=== PATIENT | female | born 1980 | race Caucasian/White ===

== ENCOUNTER 2017-01-03 12:48 | Emergency (ER) | payer OTHER ==
[2017-01-03 13:01] VITALS: BP 107/67
--- NOTE | 2017-01-03 13:30 | UC ---
Lower Extremity/Ankle HPI - HPI Summary HPI Summary: later left ankle injury twisted on an uneven side walk yesterday---pain swelling and bruising lateral left ankle - History of Current Complaint Chief Complaint: UCLowerExtremity Stated Complaint: LT ANKLE INJURY Time Seen by Provider: 01/03/17 13:11 Hx Obtained From: Patient ?: No Onset/Duration: Sudden Onset, Lasting Days - 1, Still Present Severity Initially: Moderate Severity Currently: Moderate Pain Intensity: 6 Pain Scale Used: 0-10 Numeric Aggravating Factor(s): Standing, Ambulation Alleviating Factor(s): Rest, Elevation, Ice, OTC Meds Able to Bear Weight: Yes - with pain - Allergies/Home Medications Allergies/Adverse Reactions: Allergies Allergy/AdvReac Type Severity Reaction Status Date / Time No Known Allergies Allergy Verified 11/10/13 10:03 Home Medications: Home Medications Cetirizine* [ZyrTEC 10 MG TAB*] 10 mg PO DAILY 01/03/17 [History Confirmed 01/03] Ibuprofen [Advil] 600 mg PO 01/03/17 [History] Loratadine & Pseudoephedrine [Claritin-D 24 Hour 10-240 mg] 01/03/17 [History] PMH/Surg Hx/FS Hx/Imm Hx Previously Healthy: Yes - Surgical History Surgical History: Yes Surgery Procedure, Year, and Place: BILATERAL AUGMENTATION - 1996 [facility] [place]. C- SECTION - 2011 [place]. DERMABRASION - [address] [facility] [address] - Family History Known Family History: Positive: None Family History: no cardiovascular issues in family lineage - Social History Occupation: Unemployed Lives: With Family Alcohol Use: Occasionally Substance Use Type: None Smoking Status (MU): Never Smoked Tobacco Have You Smoked in the Last Year: No Review of Systems Constitutional: Negative Skin: Negative Eyes: Negative ENT: Negative Respiratory: Negative Cardiovascular: Negative Gastrointestinal: Negative Genitourinary: Negative Motor: Negative Neurovascular: Negative Musculoskeletal: Arthralgia - left lateral ankle Neurological: Negative Psychological: Negative All Other Systems Reviewed And Are Negative: Yes Physical Exam Triage Information Reviewed: Yes Appearance: Well-Appearing, No Pain Distress, Well-Nourished Vital Signs: Initial Vital Signs Temp 98.7 F 01/03/17 12:58 Pulse 85 01/03/17 12:58 Resp 18 01/03/17 12:58 BP 107/67 01/03/17 12:58 Pulse Ox 99 01/03/17 12:58 Vital Signs Reviewed: Yes Eye Exam: Normal Eyes: Positive: Conjunctiva Clear ENT Exam: Normal ENT: Positive: Normal ENT inspection, Hearing grossly normal. Negative: Nasal congestion, Nasal drainage, Trismus, Muffled/hoarse voice Dental Exam: Normal Neck exam: Normal Neck: Positive: Supple, Nontender Respiratory Exam: Normal Respiratory: Positive: Chest non-tender, Lungs clear, Normal breath sounds, No respiratory distress, No accessory muscle use Cardiovascular Exam: Normal Cardiovascular: Positive: RRR, No Murmur, Pulses Normal, Brisk Capillary Refill Musculoskeletal Exam: Normal Musculoskeletal: Positive: Strength Intact, ROM Intact, Edema @ Neurological Exam: Normal Neurological: Positive: Alert, Muscle Tone Normal Psychological Exam: Normal Skin Exam: Normal Diagnostics - Radiology No standard instances Xray Interpretation: No Acute Changes Radiology Interpretation Completed By: Radiologist Lower Extremity Course/Dx - Course Course Of Treatment: rice, cam boot, crutches, rice, ibuprofen, follow with ortho prn - Differential Dx/Diagnosis Differential Diagnosis/HQI/PQRI: Contusion, Fracture (Closed), Sprain, Strain Provider Diagnoses: Left ankle sprain Discharge - Discharge Plan Condition: Stable Disposition: HOME Patient Education Materials: Ibuprofen (By mouth), Ankle Sprain (ED), Crutch Instructions (ED), RICE Therapy (ED) Referrals: Flaquito Lai MD [Medical Doctor] - 5 Days
--- NOTE | 2017-01-03 14:08 | RAD ---
INDICATION: Lateral ankle pain after inversion injury the previous day COMPARISON: None. TECHNIQUE: 3 views of the left ankle were obtained. FINDINGS: There is mild soft tissue swelling overlying the fibular malleolus. The well corticated bones exhibit normal alignment. Joint spaces appear maintained. No fracture is seen. IMPRESSION: MILD SOFT TISSUE SWELLING WITHOUT RADIOGRAPHICALLY APPARENT FRACTURE OR DISLOCATION. If the patient's symptoms persist, follow-up imaging is recommended.
== END 2017-01-03 15:10 | disposition home or self-care (01) ==
LOC: UCEAST 12:48
DX: S93.402A Sprain of unspecified ligament of left ankle, initial encounter (principal); X50.1XXA Overexertion from prolonged static or awkward postures, initial encounter; Y93.9 Activity, unspecified; Y92.480 Sidewalk as the place of occurrence of the external cause
CPT/HCPCS: 99211; G0463

== ENCOUNTER 2017-02-14 16:17 | Emergency (ER) | payer OTHER ==
[2017-02-14 16:38] VITALS: BP 144/73
--- NOTE | 2017-02-14 16:48 | UC ---
Throat Pain/Nasal Chris HPI - HPI Summary HPI Summary: ONE WEEK OF SINUS CONGESTION, SORE THROAT, OCCASIONAL COUGH. NO KNOWN FEVER. NO RASHES. SORE THROAT AND CONGESTION WORSENING. NO SHORTNESS OF BREATH. NO CHEST PAIN. - History of Current Complaint Chief Complaint: UCRespiratory Stated Complaint: SORE THROAT,COUGH Time Seen by Provider: 02/14/17 16:28 Hx Obtained From: Patient Hx Last Menstrual Period: tubal Onset/Duration: Gradual Onset, Lasting Weeks, Still Present Severity: Moderate Cough: Nonproductive Associated Signs & Symptoms: Positive: Hoarseness, Sinus Discomfort, Nasal Discharge - Epiglottits Risk Factors Epiglottis Risk Factors: Negative - Allergies/Home Medications Allergies/Adverse Reactions: Allergies Allergy/AdvReac Type Severity Reaction Status Date / Time No Known Allergies Allergy Verified 11/10/13 10:03 Home Medications: Home Medications Dextromethorphan-Phenylephrine [Day Time Multi-Symptom Co] 1 cap PO 02/14/17 [ History] PMH/Surg Hx/FS Hx/Imm Hx Previously Healthy: Yes - Surgical History Surgical History: Yes Surgery Procedure, Year, and Place: BILATERAL AUGMENTATION - 1996 [facility] [place]. C- SECTION - 2011 [place]. DERMABRASION - [address] [facility] - Family History Known Family History: Positive: None Negative: Cardiac Disease, Respiratory Disease Family History: no cardiovascular issues in family lineage - Social History Occupation: Employed Full-time Lives: With Family Alcohol Use: Weekly Substance Use Type: None Smoking Status (MU): Never Smoked Tobacco Have You Smoked in the Last Year: No Review of Systems Constitutional: Negative Skin: Negative Eyes: Negative ENT: Nasal Discharge, Sinus Congestion Respiratory: Cough Cardiovascular: Negative Gastrointestinal: Negative Genitourinary: Negative Motor: Negative Neurovascular: Negative Musculoskeletal: Negative Neurological: Negative Psychological: Negative All Other Systems Reviewed And Are Negative: Yes Physical Exam Triage Information Reviewed: Yes Appearance: Well-Appearing, No Pain Distress, Well-Nourished Vital Signs: Initial Vital Signs Temp 98.8 F 02/14/17 16:19 Pulse 115 02/14/17 16:19 Resp 18 02/14/17 16:19 BP 144/73 02/14/17 16:19 Pulse Ox 100 02/14/17 16:19 Vital Signs Reviewed: Yes Eye Exam: Normal ENT: Positive: Hearing grossly normal, Pharyngeal erythema, TM bulging, TM dull , Tonsillar swelling Dental Exam: Normal Neck exam: Normal Neck: Positive: Supple, Nontender, No Lymphadenopathy Respiratory Exam: Normal Respiratory: Positive: Chest non-tender, Lungs clear, Normal breath sounds, No respiratory distress Cardiovascular Exam: Normal Cardiovascular: Positive: RRR, No Murmur Abdominal Exam: Normal Musculoskeletal Exam: Normal Neurological Exam: Normal Psychological Exam: Normal Skin Exam: Normal Throat Pain/Nasal Course/Dx - Differential Dx/Diagnosis Differential Diagnosis/HQI/PQRI: Otitis Media, Pharyngitis, Tonsillitis, URI Provider Diagnoses: SINUSITIS; LARYNGITIS Discharge - Discharge Plan Condition: Stable Disposition: HOME Prescriptions: Azithromycin TAB* [Zithromax TAB (Z-REN) 250 mg #6 tabs] 250 mg PO DAILY #6 tab Patient Education Materials: Sinusitis (ED), Laryngitis (ED) Referrals: Katelin Brooks [employer] SYSTEM ADMINISTRATOR [Primary Care Provider] -
== END 2017-02-14 16:45 | disposition home or self-care (01) ==
LOC: UCEAST 16:17
DX: J32.9 Chronic sinusitis, unspecified (principal); J04.0 Acute laryngitis
CPT/HCPCS: 99212; G0463